=== PATIENT | male | born 1970 | race Caucasian/White ===

== ENCOUNTER 2017-10-27 22:25 | Emergency (ER) | payer OTHER ==
[~2017-10-27] VITALS: Ht 170.2 cm; Wt 85.3 kg
[~2017-10-27 22:25] MED LIST: MICARDIS20 MG
[2017-10-28] MEDS ORDERED: ULTRAM50 MG PO (08:12)
== END 2017-10-28 08:30 | disposition home or self-care (01) ==
LOC: ER 22:25
DX: N20.1 Calculus of ureter (principal); R10.32 Left lower quadrant pain